=== PATIENT | male | born 1980 | race Caucasian/White ===

== ENCOUNTER → 2019-06-15 13:42 | Outpatient (BNVA) | payer OTHER, SELFPAY | PROVIDERS: PCP Nurse Practitioner Family; Visit Provider Nurse Practitioner Family | DX: M75.31 Calcific tendinitis of right shoulder (principal); G89.29 Other chronic pain; M24.811 Other specific joint derangements of right shoulder, not elsewhere classified; M25.511 Pain in right shoulder; M25.611 Stiffness of right shoulder, not elsewhere classified; Z56.89 Other problems related to employment | CPT/HCPCS: 73030 ==

== ENCOUNTER 2020-11-27 12:43 | Outpatient (CLI) | payer OTHER, SELFPAY ==
--- NOTE | 2020-11-27 12:57 | XR_ITS ---
WS: [id number] LUMBAR SPINE TECHNIQUE: 3 views of the lumbar spine CLINICAL INFORMATION: M54.9 - Dorsalgia, unspecified COMPARISON: None. FINDINGS: Five [id number] lumbar vertebral bodies. Mild lumbar curve convex left. Grade 1 anterolisthesis L4 on L5 measuring 14.4 mm with chronic spondylolysis. Disc space narrowing worse L4-L5 and L5-S1. Sl ight retrolisthesis L5 on S1 measuring 4 mm . XR/XR lumbar spine 2-3V* [id number] IMPRESSION: 1. Grade 1 anterolisthesis L4 on L5 measuring 14.4 mm with chronic spondylolys is. 2. Disc space narrowing worse L4-L5 and L5-S1. 3. Slight retrolisthesis L5 on S1 measuring 4 mm
== END 2020-11-27 12:44 | disposition home or self-care (01) ==
PROVIDERS: PCP Nurse Practitioner Family; Visit Provider Nurse Practitioner Family
DX: M54.5 Low back pain (principal); R22.2 Localized swelling, mass and lump, trunk; M47.816 Spondylosis without myelopathy or radiculopathy, lumbar region
CPT/HCPCS: 72100

== ENCOUNTER 2020-11-29 08:00 | Outpatient (CLI) | payer OTHER, SELFPAY | END 2020-11-29 08:01 | disposition home or self-care (01) | LOC: RADSHAW 09-25 11:13 | PROVIDERS: PCP Nurse Practitioner Family; Visit Provider Nurse Practitioner Family | DX: E11.9 Type 2 diabetes mellitus without complications (principal); M54.9 Dorsalgia, unspecified; R22.2 Localized swelling, mass and lump, trunk | CPT/HCPCS: 80053; 80061; 84443; 85025 ==

== ENCOUNTER → 2021-03-25 10:53 | Outpatient (BNVA) | payer OTHER, SELFPAY | PROVIDERS: PCP Nurse Practitioner Family; Visit Provider Nurse Practitioner Family | DX: E11.9 Type 2 diabetes mellitus without complications (principal) | CPT/HCPCS: 80053; 80061; 83036; 84443; 85025 ==

== ENCOUNTER 2021-06-04 02:57 | Emergency (ER) | payer OTHER, SELFPAY ==
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
[2021-06-04 03:05] VITALS: BP 142/101; PULSE 107; RESP 19; TEMP 36.1; O2SAT 100; BMI 24.4
[2021-06-04] MEDS: HYDROcodone-acetaminophen 5-325 mg Tablet 1 TAB PO (03:10)
[2021-06-04] MEDS: ketorolac 60 mg/2 mL INJ IM (03:30)
[2021-06-04] MEDS: dexamethasone 10 mg/mL INJ IM (03:30)
== END 2021-06-04 03:50 | disposition home or self-care (01) ==
PROVIDERS: Emergency Provider Emergency Medicine; PCP Nurse Practitioner Family
DX: M54.9 Dorsalgia, unspecified (principal); Z79.84 Long term (current) use of oral hypoglycemic drugs; E78.5 Hyperlipidemia, unspecified
CPT/HCPCS: 12345; 96372; 99283; J1100; J1885

== ENCOUNTER → 2021-06-06 15:24 | Outpatient (BNVA) | payer OTHER, SELFPAY | PROVIDERS: PCP Nurse Practitioner Family; Visit Provider Nurse Practitioner Family | DX: E11.9 Type 2 diabetes mellitus without complications (principal) | CPT/HCPCS: 83036 ==

== ENCOUNTER 2021-07-12 23:29 | Emergency (ER) | payer OTHER, SELFPAY ==
[2021-07-12 23:35] VITALS: BP 117/87; RESP 18; TEMP 37.2; O2SAT 97; BMI 22.1
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
[2021-07-13 00:13] LABS: Basophils % 0.3 %; Eosinophils # 0.2 10^3/uL (0.0-0.8); Eosinophils % 2.6 %; Hematocrit 40.9 % (42.0-52.0); Hemoglobin 14.4 g/dL (11.7-16.6); Lymphocytes # 2.9 10^3/uL (0.8-4.8); Lymphocytes % 32.2 %; Mean Corpuscular HGB Conc 35.2 g/dL (30.0-36.0); Mean Corpuscular Hemoglobin 31.2 pg (28.0-34.0); Mean Corpuscular Volume 88.5 fl (80-94); Mean Platelet Volume 9.6 fL (7.4-10.4); Monocytes # 0.7 10^3/uL (0.2-0.9); Monocytes % 7.7 %; Neutrophils # 5.08 10^3/uL (1.8-7.7); Nucleated Red Blood Cells % 0 %; Platelet Count 198 10^3/cmm (130-400); Red Blood Count 4.62 10^6/uL (4.1-5.3); Red Cell Distribution Width 12.7 % (12.1-15.1); White Blood Count 8.9 10^3/uL (4.0-10.0)
[2021-07-13 00:14] VITALS: RESP 18; O2SAT 99
[2021-07-13] MEDS: ondansetron 2 mg/ML SDV 2 mL 4 MG IVP (00:14)
[2021-07-13] MEDS: morphine 4 mg/mL SDV 1 mL IVP (00:14)
[2021-07-13] MEDS: sodium chloride 0.9% 500 ML 999 ML IV (00:15)
[2021-07-13 00:34] LABS: Alanine Aminotransferase 9 U/L (0-41); Alkaline Phosphatase 71 IU/L (40-130); Anion Gap 12.1 (5-19); Aspartate Amino Transferase 12 U/L (0-40); Blood Urea Nitrogen 15 mg/dL (6-20); Calcium 8.4 mg/dL (8.5-10.5); Carbon Dioxide 27 mmol/L (22-29); Chloride 104 mmol/L (98-107); Globulin 2.2 g/dL (1.3-4.6); Glomerular Filtration Rate 148.5 mL/min (90-130); Glucose 157 mg/dL (65-115); Lipase 11 U/L (13-60); Osmolality Calculated 292 mOsm/kg (285-295); Potassium 4.1 mmol/L (3.5-5.1); Sodium 139 mmol/L (136-145); Total Bilirubin 0.3 mg/dL (0.15-1.2); Total Protein 6.2 g/dL (6.6-8.7)
[2021-07-13 01:38] VITALS: BP 118/79; PULSE 94; RESP 18; O2SAT 99
--- NOTE | 2021-07-13 23:46 | USR_ITS ---
PROCEDURE INFORMATION: Exam: US Abdomen, Limited; Right Upper Quadrant Exam date and time: 07/13/2021 11:46 PM Age: 41 years old Clinical indication: Abdominal pain; Acute; Additional info: Ruq pain with n/v/d TECHNIQUE: Imaging protocol: US abdomen. Real time ultrasound with image documentation. Limited exam focused on the right upper quadrant. COMPARISON: No relevant prior studies available. FINDINGS: Liver: The liver is normal in size, measuring 15.6 cm in length. It shows normal homogeneous echotexture. Gallbladder: There are no shadowing gallstones. The gallbladder wall thickness is 1.5 mm. There is no pericholecystic fluid. The building and construction manager reports a negative Evans's sign. Common bile duct: The common bile duct measures 3 mm in diameter, normal. Pancreas: The pancreas is obscured by overlying bowel gas. Right kidney: The right kidney measures 10.6 x 5.1 x 4.7 cm. US/US gall bladder [id number] IMPRESSION: 1. No evidence of cholelithiasis or acute cholecystitis. 2. Normal common bile duct.
== END 2021-07-13 01:39 | disposition home or self-care (01) ==
PROVIDERS: Emergency Provider Physician Assistant; PCP Nurse Practitioner Family
DX: A08.4 Viral intestinal infection, unspecified (principal); Z79.84 Long term (current) use of oral hypoglycemic drugs; E78.5 Hyperlipidemia, unspecified; F17.210 Nicotine dependence, cigarettes, uncomplicated
CPT/HCPCS: 76705; 80053; 83690; 85025; 96374; 96375; 99284; J2270; J2405; J7040

== ENCOUNTER 2021-09-27 07:26 | Outpatient (CLI) | payer SELFPAY ==
--- NOTE | 2021-09-27 08:00 | MR_ITS ---
WS: [id number] MRI LUMBAR SPINE NONCONTRAST HISTORY: M51.36 - Other intervertebral disc degeneration, pain radiates down RIGHT leg. COMPARISON: Lumbar spine radiographs 11/27/2020 TECHNIQUE: Sagittal and axial multisequence imaging is submitted. Central disc protrusion at C6-7 contacts the ventral cervical cord. Mild anterior wedging of T6. Mild anterior wedging with concave deformity T11. L4 anterolisthesis by 12 mm. The remaining vertebral bodies are normally aligned. Marked disc space narrowing at L4-5. Conus terminates normally at L1. L1-L2: Normal. L2-L3: Normal. L3-L4: Normal. L4-L5: Unroofing of the disc with encroachment upon the subarticular recesses, RIGHT greater than LEF T. Disc is contacting the RIGHT traversing L5 nerve root and displacing it. Smaller amount contact on the LEFT L5 nerve root. No central stenosis. Moderate narrowing of the neural foramen. There is also disc contact on the exiting L4 nerve roots bilaterally with moderate foraminal narrowing. Bilateral pars defects at L4. L5-S1: Mild disc bulging. No stenosis. On the sagittal STIR sequence there is increased T2 signal consistent with edema and inflammation in the paravertebral soft tissues on the RIGHT at L3-L5. Greatest amount surrounds the L4-5 RIGHT facet joint. MR/MR lumbar spine wo con* [id number] IMPRESSION: 1. Grade 1 spondylolisthesis of L4 with L4 spondylolysis. 2. Subarticular and foraminal stenosis at L4-5. Most significant contact on th e RIGHT traversing L5 nerve root. 3. Edema in the paraspinal soft tissues on the RIGHT from L3 to L5 most signif icant near the L4-5 facet joint. May indicate some instability and inflammation of the facet joint and spondylolisthesis. 4. Prior anterior compression fractures at T6 and T11.
== END 2021-09-27 07:27 | disposition home or self-care (01) ==
PROVIDERS: PCP Nurse Practitioner Family; Visit Provider Nurse Practitioner Family
DX: M51.36 Other intervertebral disc degeneration, lumbar region (principal); M47.816 Spondylosis without myelopathy or radiculopathy, lumbar region; G89.29 Other chronic pain; M48.061 Spinal stenosis, lumbar region without neurogenic claudication
CPT/HCPCS: 72148

== ENCOUNTER 2021-11-25 00:32 | Emergency (ER) | payer SELFPAY ==
[2021-11-25 00:37] VITALS: BMI 26.2
[2021-11-25 00:40] VITALS: BP 109/79; PULSE 101; RESP 16; TEMP 37.4; O2SAT 95
--- NOTE | 2021-11-25 00:52 | XRR_ITS ---
PROCEDURE INFORMATION: Exam: XR Left Knee Exam date and time: 11/25/2021 1:28 AM Age: 41 years old Clinical indication: Pain; Knee; Left; Patient HX: No injury; Additional info: Left knee pain TECHNIQUE: Imaging protocol: Radiologic exam of the Left knee. Views: 3 views. AP [place] Lateral COMPARISON: No relevant prior studies available. FINDINGS: Bones/joints: There is normal alignment without fractures or dislocations. Tiny tibial spine degenerative osteophytes are seen. The joint spaces appear unremarkable. There are no joint bodies. Prominent anterior proximal tibial tubercle region is seen. Soft tissues: There is a medium-sized knee joint effusion. There are no radiopaque foreign bodies. There is mild knee region soft tissue swelling. Notes: If there is further clinical concern for internal derangement of the knee, recommend MRI. XR/XR knee LT 3V* [id number] IMPRESSION: No fractures or dislocation of the left knee. Medium sized knee joint effusion. Mild knee region soft tissue swelling.
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
[2021-11-25] MEDS: ketorolac 60 mg/2 mL INJ IM (01:35)
[2021-11-25 02:20] VITALS: BP 111/76; PULSE 89; RESP 16; TEMP 37.4; O2SAT 96
== END 2021-11-25 02:22 | disposition home or self-care (01) ==
PROVIDERS: Emergency Provider Physician Assistant; PCP Nurse Practitioner Family
DX: M25.562 Pain in left knee (principal); Z79.84 Long term (current) use of oral hypoglycemic drugs; E78.5 Hyperlipidemia, unspecified; F17.210 Nicotine dependence, cigarettes, uncomplicated
CPT/HCPCS: 73562; 96372; 99284; E0114; J1885

== ENCOUNTER → 2021-12-31 13:10 | Outpatient (BNVA) | payer SELFPAY | PROVIDERS: PCP Nurse Practitioner Family; Visit Provider Physician Assistant | DX: G89.29 Other chronic pain (principal); M54.50 Low back pain, unspecified | CPT/HCPCS: 72110 ==

== ENCOUNTER → 2022-01-09 13:47 | Outpatient (BNVA) | payer SELFPAY | PROVIDERS: PCP Nurse Practitioner Family; Visit Provider Nurse Practitioner Family | DX: E11.9 Type 2 diabetes mellitus without complications (principal); M54.50 Low back pain, unspecified; G89.29 Other chronic pain | CPT/HCPCS: 80053; 80061; 83036; 84443; 85025 ==

== ENCOUNTER → 2022-06-27 10:00 | Outpatient (BNVA) | payer SELFPAY | PROVIDERS: PCP Nurse Practitioner Family; Visit Provider Nurse Practitioner Family | DX: E11.9 Type 2 diabetes mellitus without complications (principal); M54.50 Low back pain, unspecified; G89.29 Other chronic pain; M47.816 Spondylosis without myelopathy or radiculopathy, lumbar region; L08.9 Local infection of the skin and subcutaneous tissue, unspecified | CPT/HCPCS: 80053; 80061; 83036; 84443; 85025 ==

== ENCOUNTER → 2023-04-06 15:32 | Outpatient (BNVA) | payer SELFPAY | PROVIDERS: PCP Nurse Practitioner Family; Visit Provider Nurse Practitioner Family | DX: E11.9 Type 2 diabetes mellitus without complications (principal); R53.83 Other fatigue; M54.50 Low back pain, unspecified; G89.29 Other chronic pain; M47.816 Spondylosis without myelopathy or radiculopathy, lumbar region | CPT/HCPCS: 80053; 80061; 83036; 84403; 84443; 85025 ==

== ENCOUNTER → 2023-06-02 15:02 | Outpatient (BNVA) | payer SELFPAY | PROVIDERS: PCP Nurse Practitioner Family; Visit Provider Orthopaedic Surgery | DX: M51.36 Other intervertebral disc degeneration, lumbar region | CPT/HCPCS: 72110 ==

== ENCOUNTER → 2023-07-23 08:37 | Outpatient (BNVA) | payer SELFPAY | PROVIDERS: PCP Nurse Practitioner Family; Visit Provider Orthopaedic Surgery | DX: M54.50 Low back pain, unspecified (principal); M43.16 Spondylolisthesis, lumbar region; E11.9 Type 2 diabetes mellitus without complications; M79.604 Pain in right leg | CPT/HCPCS: 36415; 72100; 80053; 81001; 83036; 85025 ==

== ENCOUNTER → 2023-07-30 13:44 | Outpatient (BNVA) | payer SELFPAY | PROVIDERS: PCP Nurse Practitioner Family; Visit Provider Family Medicine | DX: Z01.818 Encounter for other preprocedural examination (principal) | CPT/HCPCS: 81003 ==

== ENCOUNTER → 2023-09-08 08:54 | Outpatient (BNVA) | payer SELFPAY | PROVIDERS: PCP Nurse Practitioner Family; Visit Provider Orthopaedic Surgery | DX: M54.50 Low back pain, unspecified (principal); M79.604 Pain in right leg; M43.16 Spondylolisthesis, lumbar region | CPT/HCPCS: 36415; 80053; 81003; 83036; 85025 ==

== ENCOUNTER 2023-10-08 15:58 | Outpatient (CLI) | payer SELFPAY ==
[2023-10-08 16:24] LABS: Basophils % 0.4 %; Eosinophils # 0.5 10^3/uL (0.0-0.8); Eosinophils % 6.2 %; Hematocrit 47.4 % (37-53); Lymphocytes # 2.3 10^3/uL (0.8-4.8); Lymphocytes % 28.2 %; Mean Corpuscular HGB Conc 34.6 g/dL (30-55); Mean Corpuscular Hemoglobin 31.5 pg (27-33); Mean Corpuscular Volume 91.2 fl (82-101); Mean Platelet Volume 10.2 fL (7.4-10.4); Monocytes # 0.5 10^3/uL (0.2-0.9); Monocytes % 5.5 %; Neutrophils # 4.81 10^3/uL (1.8-7.7); Neutrophils % 59.3 %; Nucleated Red Blood Cells % 0 %; Platelet Count 218 10^3/cmm (157-399); Red Cell Distribution Width 12.7 % (12.1-15.1); White Blood Count 8.11 10^3/uL (3.29-11.43)
[2023-10-08 16:48] LABS: Alanine Aminotransferase 20 U/L (0-41); Albumin Level 4.3 g/dL (3.5-5.2); Alkaline Phosphatase 73 U/L (40-130); Anion Gap 14.3 (5-19); Aspartate Amino Transferase 21 U/L (0-40); Blood Urea Nitrogen 21 mg/dL (6-20); Calcium 8.8 mg/dL (8.5-10.5); Carbon Dioxide 27 mmol/L (22-29); Chloride 108 mmol/L (98-107); Globulin 2.9 g/dL (1.3-4.6); Glomerular Filtration Rate 73.1 mL/min (90-130); Glucose 211 mg/dL (65-115); Osmolality Calculated 309 mOsm/kg (285-295); Potassium 4.3 mmol/L (3.5-5.1); Sodium 145 mmol/L (136-145); Total Bilirubin 0.2 mg/dL (0.15-1.2); Total Protein 7.2 g/dL (6.6-8.7)
[2023-10-08 17:11] LABS: Estmated Average Glucose 174; Hemoglobin A1C 7.7 % (4.0-6.0)
== END 2023-10-08 15:59 | disposition home or self-care (01) ==
LOC: LAB 16:02
PROVIDERS: PCP Nurse Practitioner Family; Visit Provider Orthopaedic Surgery
DX: M54.50 Low back pain, unspecified (principal); M79.604 Pain in right leg; M43.16 Spondylolisthesis, lumbar region; E11.9 Type 2 diabetes mellitus without complications
CPT/HCPCS: 36415; 80053; 83036; 85025

== ENCOUNTER → 2023-10-14 10:11 | Outpatient (BNVA) | payer SELFPAY | PROVIDERS: PCP Nurse Practitioner Family; Visit Provider Nurse Practitioner Family | DX: E11.9 Type 2 diabetes mellitus without complications (principal) | CPT/HCPCS: 83036 ==

== ENCOUNTER 2023-10-27 10:12 | Outpatient (CLI) | payer SELFPAY ==
[2023-10-27 10:51] LABS: Estmated Average Glucose 174; Hemoglobin A1C 7.7 % (4.0-6.0)
== END 2023-10-27 10:13 | disposition home or self-care (01) ==
LOC: LAB 10:12
PROVIDERS: PCP Nurse Practitioner Family; Visit Provider Orthopaedic Surgery
DX: E11.9 Type 2 diabetes mellitus without complications (principal)
CPT/HCPCS: 36415; 83036

== ENCOUNTER 2023-11-02 16:54 | Inpatient (IN) | payer SELFPAY ==
[2023-11-02] VITALS (13 sets, daily range): BP systolic 111–173; BP diastolic 56–97; PULSE 84–95; RESP 17–22; TEMP 36.2–36.9; O2SAT 92–98; BMI 28.7
[2023-11-02 12:12] LABS: Glucose Point of Care 126 mg/dL (70-110)
[2023-11-02] MEDS: albuterol 2.5 mg/3 mL Neb INHALATION (12:29)
--- NOTE | 2023-11-02 12:58 | W.PM.OPSUD ---
Surgery/Procedure H&P Update DATE OF PROCEDURE: November 02, 2023 DATE H&P PERFORMED: 10/14/23 H&P UPDATE INFORMATION: I have reviewed H&P completed within last 30 days, I have examined patient prior to procedure and No changes to prior documentation PREOP DIAGNOSIS: Lumbar stenosis neurogenic claudication PLANNED PROCEDURE: Operation Date: 11/02/23 12:50 Proposed Procedures p Spinal Fusion PSF(Not Applicable) - Dragan Mukherjee DO s Posterior Lumbar Interbody Fusion PLIF(Not Applicable) - Dragan Mukherjee DO
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
[2023-11-02] MEDS: ceFAZolin 2,000 MG in sodium chloride 0.9% (plus) 50 ML 100 MG IV ×2 (13:43→22:00)
[2023-11-02] MEDS: lidocaine-epi 1% PF 1:200,000 30 mL SDV INJECTION (14:20)
[2023-11-02] MEDS: vancomycin 1,000 MG SDV 1000 MG XX (15:26)
--- NOTE | 2023-11-02 16:45 | XR_ITS ---
WS: [id number] Exam: XR lumbar spine 2-3V* [id number] Date/Time of Exam: 11/02/2023 4:45 PM Reason For Exam: Postop x-rays, CHRISTY IMAGES Single lateral intraoperative image of the lower lumbar spine is submitted. The image was obtained for intraoperative localization purposes.
--- NOTE | 2023-11-02 16:50 | P.OP_ITS ---
Operative Report Date of procedure: November 02, 2023 Pre-op diagnosis: L4-5 spondylolisthesis Post-op diagnosis: same Procedure done: 1. L4/5 Interbody fusion with posterolateral fusion 2. Instrumentation L4/5 3. Cage at L4/5 4. L4-5 laminectomy with facetectomies 5. use of autograft from same incision 6. allograft 7. Bone marrow aspirate from right iliac crest 8. Use of computer navigation stereotactic for the spine Surgeon: Dragan Mukherjee DO Estimated blood loss (mL): 300 Procedure: 1. L4/5 Interbody fusion with posterolateral fusion 2. Instrumentation L4/5 3. Cage at L4/5 4. L4-5 laminectomy with facetectomies 5. use of autograft from same incision 6. allograft 7. Bone marrow aspirate from right iliac crest 8. Use of computer navigation stereotactic for the spine Patient is brought to the operative suite. After undergoing anesthesia, the patient had neuro monitoring attached. Patient was then placed in the prone position on the Michelet table. All areas of impingement were well-padded. Patient was then prepped and draped in the normal sterile fashion. Skin inci julianna was then made over the L 4/5 space. Subperiosteal dissection was made out to the transverse processes of L4 and L5 bilaterally. The [employer] bone marrow aspirate kit was used to aspirate bone marrow aspirate drawn from the right iliac crest. This was done by using the sharp probe to open up the bone. Aspiration was performed and then the blunt probe was then used to dissect down to through the bone tunnel. An aspirating well drawn back a millimeter approximately 20 cc of bone marrow aspirate was used. Admixed with the allograft and autograft bone that will be used. Next 2 pins were placed in the right iliac crest and greater were used to attach the fusion to in order to do the computer navigation. This was done by placing 2 pins the patient was attached and serum was brought in spinal patient information from serum was loaded the computer and was later used to place the pedicle screws under computer navigation. The technique for placing the pedicle screws was to use a drill followed by the gearshift probe linked to computer navigation. Followed by the ball probe to feel the superior inferior medial lateral chamberlain of the pedicles. Then placement of the screws linked to computer navigation. Was done at each pedicle. Screws were placed at L4 bilaterally and L5 bilaterally. Next attention was brought to performing the laminectomy ofL4. This was done using the high-speed bur Kerrisons and curettes. Once the lamina was removed and then attention was brought to performing a partial facetectomy on the contralateral side. This was done again using the high-speed bur curettes and Kerrisons. The ligamentum flavum was taken down bilaterally from L4 to L5. Attention was then brought to the facet on the ipsilateral side. The facet was taken down. The L5 nerve was decompressed as it passed around the L5 pedicle. The laminectomy was done for purposes of decompressing the nerve as well as placement of the cage. The L4 nerve was identified as it traversed through the L4/5 foramen. The thecal sac was identified and retracted. The L4/5 disc base was identified. Using a knife the disc base was opened. And then sequential george were placed. The first shaver was a 6 and the last shaver was a 8. Using a pituitary and down going curette the endplates were scraped and disc material was removed from the space. Once adequate decompression of the disc base was felt to be had. Osteoamp sponge was packed into the anterior aspect of the disc base. Then a size 9 cage from [employer] was placed after packing osteoamp into the cage. While placing the cage the thecal sac and L5 nerve was protected. C arm was used to ensure that the cages placed in the appropriate position. Attention was then brought to attaching the rods to the screws placed in the L4 bilaterally and L5 bilaterally. Caps were torqued into position. Locking the construct in place. Wound was copiously irrigated and then attention was brought to decorticating the facets and transverse processes laterally. Bone that was taken down from the lamina was used along with osteoamp fibers and sponges were packed into the lateral gutters along the facet joints. This was done porsha aterally. Wound was then closed in a layered fashion starting with the thoracolumbar fascia. 0-vicryl was used the sub cutaneous tissue was closed with 2-0 vicryl and skin with 4-0 monocryl. Glue was then used to seal the skin and a steril dressing was applied. Patient was then placed in the supine position. The endotracheal tube was removed and patient was transferred to the PACU in stable condition.
[2023-11-02 17:00] LABS: Glucose Point of Care 187 mg/dL (70-110)
--- NOTE | 2023-11-02 17:25 | ANE.PACU2 ---
Inpatient post-anesthesia follow up: Airway intact: Yes Vital signs: Temperature 98.3 F Pulse Rate 94 Respiratory Rate 16 Blood Pressure 144/82 Pulse Oximetry 94 Oxygen Delivery Me thod Room Air Oxygen Flow Rate 2 Fraction of Inspir ed Oxygen Hydration adequate: Yes Nausea and vomiting: No Pain level: 1 Mental status: Baseline
[2023-11-02] MEDS: HYDROcodone-acetaminophen 5-325 mg Tablet PO (18:33)
[2023-11-02] MEDS: lactated ringers 1,000 ML 90 ML IV (18:33)
[2023-11-02] MEDS: metformin XR 500 MG Tablet 1000 MG PO (18:33)
[2023-11-02] MEDS: docusate sodium 100 mg Capsule PO (18:33)
--- NOTE | 2023-11-02 18:49 | PC.NURSE ---
pt extremely diaphoretic upon admission so no tele applied. Advised night nurse that tele will need to be applied this evening.
[2023-11-02] MEDS: ondansetron 2 mg/ML SDV 2 mL 4 MG IVP (20:25)
[2023-11-02] MEDS: gabapentin 300 mg Capsule PO (20:25)
[2023-11-03] VITALS: BP 142/85; PULSE 80; RESP 18; TEMP 36.8; O2SAT 96
[2023-11-03] MEDS: HYDROcodone-acetaminophen 5-325 mg Tablet PO ×2 (01:49→08:05)
[2023-11-03 05:13] VITALS: BP 144/82; PULSE 94; RESP 16; TEMP 36.8; O2SAT 94
[2023-11-03] MEDS: lactated ringers 1,000 ML 90 ML IV (05:14)
[2023-11-03] MEDS: ceFAZolin 2,000 MG in sodium chloride 0.9% (plus) 50 ML 100 MG IV (05:15)
[2023-11-03] MEDS: docusate sodium 100 mg Capsule PO (08:05)
[2023-11-03] MEDS: atorvastatin 40 mg Tablet PO (08:05)
[2023-11-03] MEDS: metformin XR 500 MG Tablet 1000 MG PO (08:05)
[2023-11-03] MEDS: gabapentin 300 mg Capsule PO (08:05)
[2023-11-03] MEDS: lisinopril 20 mg Tablet PO (08:06)
--- NOTE | 2023-11-03 09:15 | XRR_ITS ---
PROCEDURE INFORMATION: Exam: XR Lumbosacral Spine Exam date and time: 11/03/2023 10:02 AM Age: 43 years old Clinical indication: Device placement; Other; Prior surgery; Surgery date: Post-operative (0-2 days); Surgery type: Lumbar fusion 11/01; Additional info: Post op TECHNIQUE: Imaging protocol: Radiologic exam of the lumbosacral spine. Views: 2 or 3 views. COMPARISON: OT XR lumbar spine 2-3V* [id number] 11/02/2023 2:16 PM FINDINGS: Bones/joints: Status post posterior harini and screw fusion of L4-L5 with artificial disc spacer. Mild grade 1 intra fusion anterolisthesis of L4 on L5. Soft tissues: Visualized soft tissues are within normal limits. XR/XR lumbar spine 2-3V* [id number] IMPRESSION: Status post posterior harini and screw fusion of L4-L5 with artificial disc spacer. Mild grade 1 intra fusion anterolisthesis of L4 on L5.
[2023-11-03 09:26] VITALS: BP 132/80; PULSE 94; RESP 20; TEMP 36.3; O2SAT 92
--- NOTE | 2023-11-03 09:31 | PC.CHAP ---
Pastoral Care Encounter/Spiritual Assessment Type of Contact [] Declined aluminum molder visit [] Patient/Family/Request visit [] Outpatient visit [] Follow-up visit [] Physician referral [] Code/Alert [x] Routine visit [] Staff referral [] Actively dying [] Patient sleeping [] Family support [] [] Out of room [] Palliative care [] [] Receiving care in room [] Pre-surgical visit [] Trauma [] Long length of stay [] ICU visit [x] Other:Declined prayer. Relational/Emotional Strength [x] Patient feels connected with others/family/visitors/staff [] Distress [] Loneliness/isolation [] Abandonment Spirituality of Patient [] Person of Zahraa [] Attends Mosque of their Zahraa [] Believes in Prayer [] Reads Bible or Samaritan materials [x] There are Spiritual issues to be addressed Judicial Reporter Interventions [] Prayer [x] Active listening [x] Non-anxious presence [x] Spiritual/emotional support [] Crisis/trauma care [] Spiritual counseling [] Bereavement support [] Provided bereavement packet [] Provided Bible/devotional materials [] Provided toy/stuffed animal, coloring book to patient or family member [] Provided Communion [] Anointing/Daniel [] Salvation [x] Completed spiritual assessment [] Other: Impact on Illness or Injury [] Angry [] Fearful [] Anxious [] Often cries [] Exhaustion [] Unable to work [] Unable to attend sikh [] Unable to walk/stand [] Unable to read [] Unable to drive [] Unable to eat/drink [] Unable to sleep [] Unable to be with family [] Patient intubated [] Other: Summary Time spent with patient 5 min
--- NOTE | 2023-11-03 09:52 | PM.DCS ---
Discharge Providers Date of Admission: 11/02/23 16:54 Date of Discharge: November 03, 2023 Attending Provider at Admission: Dragan Mukherjee DO Attending Provider at Discharge: Dragan Mukherjee DO Primary Care Provider: CADEN Chu Physical Exam Narrative: Patient up ambulating doing well for the most part. Discharge Data Studies Completed and Pending Completed Studies During Hospitalization Category Date Time Status XR lumbar spine 2-3V* [id number] Routine Exams 11/02/23 16:45 Completed Pending at discharge Category Date Time Status XR lumbar spine 2-3V* [id number] Routine Exams 11/03/23 09:15 Ordered Laboratory Results POC Glucose 187 mg/dL (70-110) H 11/02/23 16:57 Blood Type A Positive 11/02/23 12:05 Rho(D) Type Rh positive 11/02/23 12:05 Antibody Screen Negative 11/02/23 12:05 Vitals Last Vital Signs Temp 97.3 F L 11/03/23 09:26 Pulse 94 11/03/23 09:26 Resp 20 H 11/03/23 09:26 BP 132/80 11/03/23 09:26 Pulse Ox 92 11/03/23 09:26 O2 Del Method Room Air 11/03/23 09:26 O2 Flow Rate 2 11/02/23 17:53 Discharge Plan Discharge Patient Disposition: Home Condition: Stable Prescriptions: New hydrocodone-acetaminophen 5-325 mg tablet 1 - 2 tab PO .Q4-6H Qty: 40 0RF Continued atorvastatin 20 mg tablet 20 mg PO DAILY Qty: 90 1RF cyclobenzaprine 10 mg tablet 10 mg PO BID PRN (Reason: muscle spasm) Qty: 180 1RF Jardiance 10 mg tablet 10 mg PO DAILY Qty: 90 1RF Rx Instructions: 340B gabapentin 300 mg capsule 300 mg PO TID Qty: 270 1RF lisinopril 20 mg tablet 20 mg PO DAILY Qty: 90 1RF metformin 1,000 mg tablet extended release 24 hr 1,000 mg PO BID Qty: 180 1RF (DME) Blood Glucose Test Strip See Rx Instructions .Route Qty: 100 2RF Rx Instructions: As directed, once daily (DME) Easy Touch Lancets 32 gauge misc See Rx Instructions .Route Qty: 100 2RF Rx Instructions: As directed, once daily (DME) blood ketone glucose monitor Device See Rx Instructions .Route Qty: 1 0RF Rx Instructions: As directed Discharge Orders: Discharge Order (Routine); Ordered 11/03/23 Ordered By: Dragan Mukherjee Other Ambulatory Orders: DME: Walker (Order) Location: None Selected Ordered By: Dragan Mukherjee Referrals: Dragan Mukherjee, DO [Physician] - Discharge Diet: Advance as tolerated Discharge Activity: Limit activity as instructed Patient Instructions: Acute Wound Care (DC), Opioid Safety, Post Anesthesia Care Activity Restrictions/Additional Instructions: Thank you for [facility] for your care! The following is a list of instructions, from your provider, to follow upon your discharge to ensure you have the optimal recovery from your recent injury orsurgery. Follow-up care is a talley part of your treatment and safety. Be sure to make and go to all appointments, and call your doctor if you are having problems. If you do not already have a follow-up appointment made, call Dr. Mukherjee office in the next 1-3 days to make follow up appointment for 1 weeks at [phone]. It is also a good idea to know your test results and keep a list of the medicines you take. Medications will be prescribed for you at your provider's discretion. These medications are to be used as instructed; if they are taken more often that prescribed they will not be refilled early and in most cases will not be refilled at all. > When a refill is needed,you should contact moiz dave 2-3 business days before your prescription runs out. Medications will NOT be refilled by concrete placement equipment operator providers after hours! > Many pain medications contain Tylenol (Acetaminophen). Do not consume more than 4,000 mg of Tylenol per day in total with any combination ofmedications. > Pain medications can cause constipation. Please use an over the counter stool softener as directed, while taking pain medications. Consulty our local pharmacist with questions or recommendations on stool softeners. If constipation persists, contact our office or your primary care provider. > While under our care,you are not to receive pain medications or other controlled substances from any other provider unless our office is notified and approves. Any attempts to do so will result in refusal to prescribe any further pain medications and possible dismissal from our practice. ? r only the first 2 days after surgery, lt wilt be necessary for you to cover your wound/dressing with plastic and tape to keep it dry. ? Walking is essential for the healing process after surgery. We would like you to slowly advance your walking. This should be done on relatively flat clear ground (inside or out) or can be done on a treadmill. Remember this goal does not have to happen all at once, slowly increase your distance and duration. This can be broken into more more than one walk per day as tolerated. Patients who walk as directed after surgery rarely require Physical Therapy. In the unlikely event this issue arises your provider will direct hospital staff to make the appropriate arrangements. ? No lifting over 5 pounds {a gallon of milk) or bending/twisting until further notice. Each of these activities places an unnecessary amount of stress onto the body and can impede the delicate healing process. > Instead of bending at the waist, keep your back straight and bend at the knees. > Instead of twisting your torso, keep your back straight and turn your entire body with your feet. ? You may sleep in any position which makes you comfortable. Many patients find comfort sleeping in a reclining chair. It is not abnormal to have difficulty sleeping for the first several weeks following your surgery. We recommend trying Benadry! or Tylenol PM as directed to help with your sleeping difficulties. Both medications are over the counter and available withoutprescription. ? NO SMOKING!!! Smoking dramatically increases the probability of developing postoperative wound infections. ? Common complaints after lumbar and/or thoracic spine surgery include, but are not limited to: numbness and/or tingling in the legs, pain around the incision and surrounding tissues, muscle spasms, or stiffness of the middle to low back. Contact our office if these symptoms persist or if an acute change occurs. ? No driving for the first 3-5days, and not while taking narcotics until seen at your follow-up appointment and cleared. There are no restrictions for riding on short trips, however if you take a longer trip, arrangements should be made to make regular stops to get out of the vehicle and stretch . ? Swelling is an unfortunate event that will take place with any surgery and is the primary source of your postoperative discomfort. While walking and regular approved activities helps control inflammation, there are additional steps you can take to minimizeswelling. > Place ice over the surgical site and surrounding tissue for twenty minutes, followed by applying a low/medium heat (heating pad) for an additional twenty minutes every 1-2 hours as needed for painrelief. > You may use of over the counter anti-inflammatory medications (Ibuprofen, Motrin, Aleve, Advil, etc) as directed on the package label. These types of medicines wm significantly reduce the amount of discomfort you experience after surgery from swelling. It should be noted that if you have and allergy to any of these medications, or a history of ulcers or kidney disease you should consult you primary care provider prior to starting these medications. Discharge Attestations Time Spent in Discharge Care*: less than 30 min Quality Metrics Clinical Quality Measures [ No reported AMI, CVA or VTE this stay] Coding Level of Care Code Acute Code for Chg Polo
[2023-11-03 11:30] VITALS: BP 133/77; PULSE 93; RESP 20; TEMP 36.4; O2SAT 94
== END 2023-11-03 11:46 | disposition home or self-care (01) | DRG 455 ==
LOC: MEDSURG 16:54
PROVIDERS: Admitting Provider Orthopaedic Surgery; PCP Nurse Practitioner Family; Visit Provider Orthopaedic Surgery
PROC: 07DR3ZZ Extraction of Iliac Bone Marrow, Percutaneous Approach (ICD-10-PCS; principal; 2023-11-02 12:30)
PROC: 07DR3ZZ Extraction of Iliac Bone Marrow, Percutaneous Approach (ICD-10-PCS; CPT 22612; 2023-11-02 12:30)
DX: M43.16 Spondylolisthesis, lumbar region (principal); E11.9 Type 2 diabetes mellitus without complications; I10 Essential (primary) hypertension; E78.5 Hyperlipidemia, unspecified; Z87.891 Personal history of nicotine dependence
CPT/HCPCS: 36415; 36416; 72100; 76000; 82962; 86850; 86900; 97116; 97161; C1713; J0131; J0690; J1100; J1170; J2405; J2704; J3010; J3370; J3490; J7120; J7613

== ENCOUNTER → 2023-12-17 13:55 | Outpatient (BNVA) | payer SELFPAY | PROVIDERS: PCP Nurse Practitioner Family; Visit Provider Orthopaedic Surgery | DX: Z98.1 Arthrodesis status (principal) | CPT/HCPCS: 72100 ==

== ENCOUNTER 2024-01-02 18:52 | Emergency (ER) | payer MEDICAID, SELFPAY ==
[2024-01-02 19:36] VITALS: BP 161/91; PULSE 108; RESP 16; TEMP 36.7; O2SAT 94
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
--- NOTE | 2024-01-02 20:36 | PC.NURSE ---
discharge delayed due to ordered meds not being verified by pharmacy & not in the ed pyxis.
[2024-01-02] MEDS: neomycin-poly-hydrocort Otic Susp 10 mL Btl 4 DROP EAR-RIGHT (20:53)
[2024-01-02 21:10] VITALS: BP 148/92; PULSE 98; RESP 16; TEMP 36.7; O2SAT 95
== END 2024-01-02 20:56 | disposition home or self-care (01) ==
PROVIDERS: Emergency Provider Physician Assistant; PCP Nurse Practitioner Family
DX: H60.91 Unspecified otitis externa, right ear (principal); E78.5 Hyperlipidemia, unspecified
CPT/HCPCS: 99283

== ENCOUNTER → 2024-02-02 14:34 | Outpatient (BNVA) | payer MEDICAID, SELFPAY | PROVIDERS: PCP Nurse Practitioner Family; Visit Provider Orthopaedic Surgery | DX: Z98.1 Arthrodesis status (principal) | CPT/HCPCS: 72100 ==

== ENCOUNTER → 2024-02-23 15:26 | Outpatient (BNVA) | payer MEDICAID, SELFPAY | PROVIDERS: PCP Nurse Practitioner Family; Visit Provider Nurse Practitioner Family | DX: E11.9 Type 2 diabetes mellitus without complications (principal); I10 Essential (primary) hypertension; E78.5 Hyperlipidemia, unspecified | CPT/HCPCS: 80053; 80061; 83036; 84443; 85025 ==

== ENCOUNTER 2024-04-22 19:17 | Emergency (ER) | payer MEDICAID, SELFPAY ==
[2024-04-22 19:20] VITALS: BP 166/99; PULSE 104; RESP 18; TEMP 36.7; O2SAT 95; BMI 30.1
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
[2024-04-22] MEDS: amoxicillin-clav 875-125 mg Tablet 1 TAB PO (19:50)
[2024-04-22] MEDS: dexamethasone 10 mg/mL INJ IM (19:50)
[2024-04-22 20:06] VITALS: BP 158/91; PULSE 98; RESP 16; O2SAT 97
== END 2024-04-22 20:03 | disposition home or self-care (01) ==
PROVIDERS: Emergency Provider Physician Assistant; PCP Nurse Practitioner Family
DX: K04.7 Periapical abscess without sinus (principal); Z79.84 Long term (current) use of oral hypoglycemic drugs; E78.5 Hyperlipidemia, unspecified
CPT/HCPCS: 96372; 99284; J1100

== ENCOUNTER → 2024-06-02 11:01 | Outpatient (BNVA) | payer MEDICAID, SELFPAY | PROVIDERS: PCP Nurse Practitioner Family; Visit Provider Orthopaedic Surgery | DX: Z98.1 Arthrodesis status (principal) | CPT/HCPCS: 72100 ==

== ENCOUNTER → 2024-09-14 16:09 | Outpatient (BNVA) | payer MEDICAID, SELFPAY | PROVIDERS: PCP Nurse Practitioner Family; Visit Provider Nurse Practitioner Family | DX: E11.9 Type 2 diabetes mellitus without complications (principal); I10 Essential (primary) hypertension; E78.5 Hyperlipidemia, unspecified; M54.50 Low back pain, unspecified; G89.29 Other chronic pain | CPT/HCPCS: 80053; 80061; 83036; 84443; 85025 ==

== ENCOUNTER 2024-10-16 19:18 | Emergency (ER) | payer MEDICAID, SELFPAY ==
[2024-10-16 19:19] VITALS: BP 137/86; PULSE 88; RESP 16; TEMP 36.8; O2SAT 98; BMI 25.8
[2024-10-16 19:29] VITALS: BP 133/88; PULSE 82; O2SAT 98
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
[2024-10-16] MEDS: orphenadrine 30 mg/mL Inj 2 mL 60 MG IM (19:55)
[2024-10-16] MEDS: ketorolac 30 mg/mL INJ 15 MG IM (19:55)
[2024-10-16 19:58] VITALS: BP 136/81; PULSE 71; O2SAT 96
[2024-10-16 21:00] VITALS: BP 118/76; PULSE 86; O2SAT 95
[2024-10-16 21:25] VITALS: BP 118/69; PULSE 73; O2SAT 95
== END 2024-10-16 21:26 | disposition home or self-care (01) ==
PROVIDERS: Emergency Provider Physician Assistant; PCP Nurse Practitioner Family
DX: S73.101A Unspecified sprain of right hip, initial encounter (principal); E78.5 Hyperlipidemia, unspecified; F17.200 Nicotine dependence, unspecified, uncomplicated; Z79.899 Other long term (current) drug therapy; V28.49XA Other motorcycle driver injured in noncollision transport accident in traffic accident, initial encounter; Z79.84 Long term (current) use of oral hypoglycemic drugs
CPT/HCPCS: 12345; 73502; 96372; 99284; E0114; J1885; J2360

== ENCOUNTER → 2025-01-05 15:42 | Outpatient (BNVA) | payer MEDICAID, SELFPAY | PROVIDERS: PCP Nurse Practitioner Family; Visit Provider Nurse Practitioner Family | DX: R19.7 Diarrhea, unspecified (principal) | CPT/HCPCS: 80053; 84443; 85025; 86003; 86008 ==

== ENCOUNTER → 2025-02-17 12:25 | Outpatient (BNVA) | payer MEDICAID, SELFPAY | PROVIDERS: PCP Nurse Practitioner Family; Visit Provider Nurse Practitioner Family | DX: E11.9 Type 2 diabetes mellitus without complications (principal) | CPT/HCPCS: 83036 ==